=== PATIENT | female | born 1950 | race Caucasian/White ===

== ENCOUNTER → 2017-05-31 | Outpatient (CLI) | payer MEDICARE, BC ==
[~2017-05-31] MED LIST: ACE325 PO; ACET500T68 PO; ALB6.7R INH; CALC600T63 PO; CHOL10005 PO; CIPR3.5O4 OP; DOC100 PO; EYE DROPS; GABA-488 PO; GADOBENATE 529MG/1ML 15ML VIAL IVP ONE; IBUP-1455 PO; LACT1CAP12; LANS15CA28 PO; LEVO50 PO; LIOT5TAB18 PO; LOR10/325 PO; MAGN500C10 PO; MINO50CA PO; MINOCY50PT PO; MULT-1335 PO; OMEG-78 PO; OMEG10007; OMEP-218 PO; OMEP40CA48 PO; OXYC-865 PO; PANT40TA65 PO; PROG50VI5 IM; PROVENTAL INHALER; SYNTHROID; [UNRECOGNIZED DRUG - CODE] PO; [UNRECOGNIZED DRUG - CODE] TOP
--- NOTE | 2017-05-31 13:41 | RADIOLOGY IMAGING REPORT ---
FACILITY: [facility] - [place] PATIENT NAME: Hannah Llamas : 1950 MR: [id number] V: [id number] EXAM DATE: ORDERING PHYSICIAN: PARMINDER GRIDER TECHNOLOGIST: Location: [facility] - [place] Patient: Hannah Llamas : 1950 Visit/Account:[id number] Date of Sevice: 05/31/2017 Examination: MR brain without and with contrast History: Gait disturbance, leg pains Comparison: 05/26/2013 Technique: Multiplane MR imaging was performed through the brain without and with contrast. 14 cc IV multihance was administered. Findings: Diffusion: None Ventricles: Normal Midline shift: None Extraxial fluid: None Midline craniocervical structures: Normal Parenchyma: Greater than 10 scattered white matter high signal foci, a few of which are new. Enhancement: No pathologic enhancement Vascular flow voids: Normal Orbits and paranasal sinuses: Left maxillary sinus mucous retention cyst. Impression: 1. No acute finding. 2. Mild chronic small vessel ischemic change has minimally increased. Otherwise normal brain MR witho ut and with contrast. Report Dictated By: Aamir Tyson MD at 05/31/2017 1:26 PM Report E-Signed By: Aamir Tyson MD at 05/31/2017 1:36 PM WSN:[id number]
== END ==
LOC: MRI 05-25 02:56
PROVIDERS: ATTEND Family Medicine
DX: R26.9 Unspecified abnormalities of gait and mobility (principal); M79.605 Pain in left leg; M79.604 Pain in right leg
CPT/HCPCS: 70553; A9577

== ENCOUNTER 2017-07-20 09:55 | Outpatient (RCR) | payer MEDICARE, BC ==
[2017-04-25 09:29] LABS: PLATELET COUNT, AUTOMATED 197 K/uL (150-450)
[2017-04-25 10:41] VITALS: BP 118/89
[~2017-07-20 09:55] MED LIST changes: -GADOBENATE 529MG/1ML 15ML VIAL IVP ONE; +PROG50VI5 EXT; -PROG50VI5 IM
[2017-07-20 10:01] VITALS: BP 123/61
[2017-07-20 10:22] LABS: PLATELET COUNT, AUTOMATED 225 K/uL (150-450)
== END 2017-07-23 ==
LOC: SPU 09:55
PROVIDERS: ATTEND Internal Medicine Medical Oncology
DX: E83.110 Hereditary hemochromatosis (principal)
CPT/HCPCS: 36415; 82040; 82247; 82310; 82374; 82435; 82565; 82728; 82947; 83540; 83550; 84075; 84132; 84155; 84295; 84450; 84460; 84520; 85025

== ENCOUNTER 2017-07-25 09:49 | Outpatient (RCR) | payer MEDICARE, BC ==
[2017-07-25 10:00] VITALS: BP 127/67
--- NOTE | 2017-07-25 17:07 | ONCOLOGY FOLLOW UP NOTE ---
EVENT DATE: July 25, 2017 REASON FOR FOLLOWUP 1. Hereditary hemochromatosis (C282Y homozygosity). 2. History of small, provoked distal deep venous thrombosis, status post ankle fracture; patient is status post anticoagulation and subsequent discontinuation. CHIEF COMPLAINT Musculoskeletal pain. HISTORY OF PRESENT ILLNESS Hannah returns to clinic for a follow-up visit today. Since our last visit, she reports that mentally she has been doing a little better. She is grieving the loss of her , but she has found great comfort in the hospice sponsored support group, and she continues regularly with a counselor. She said she has good days and bad days, but in general things seem to be getting a bit better. She reports some ongoing issues with pain in her lower extremities , in particular the right ankle, as well as IT bands. She has also had some buttock pain, and she reports that her sacrum had become "displaced," requiring work. She continues to take ibuprofen as needed, and Tylenol sparingly at night. She does not drink alcohol. She is doing a very diligent job avoiding iron-rich foods. She has had no leg swelling, redness, or increased warmth. She reports no shortness of breath, chest pain, or productive cough. She has had labs performed, and she is here to review the results. She has not required [place] phlebotomy in the interim since our last visit. REVIEW OF SYSTEMS Otherwise negative, with the exception of ongoing depression after the loss of her . All systems reviewed. PAST MEDICAL HISTORY 1. History of ankle fracture. 2. History of small, provoked, distal DVT associated with number one; status post anticoagulation and subsequent discontinuation. 3. Hereditary hemochromatosis, as above. CURRENT MEDICATIONS 1. Percocet p.r.n. 2. Topical progesterone. 3. Gabapentin. 4. Tylenol. 5. Cytomel. 6. Albuterol p.r.n. 7. Synthroid. ALLERGIES No known drug allergies, but she is reportedly allergic to LANOLIN OPHTHALMOLOGIC DROPS. SOCIAL HISTORY The patient is a nonsmoker and nondrinker. There is no history of illicit drug use. FAMILY HISTORY There is a reported history of bladder cancer in her father at age 56. VITAL SIGNS Temperature 97.3, blood pressure 127/67, heart rate is 79, respirations 16, oxygen saturation is 95% on room air. Weight is 66 kg. PHYSICAL EXAMINATION GENERAL: The patient is alert and oriented times three in no apparent distress sitting in the exam room chair. She is interactive and pleasant. HEENT: Exam reveals anicteric sclerae. SKIN: Exam reveals small erythematous areas over the bridge of her nose, status post recent dermatologic procedure. NEUROLOGIC: Exam is grossly nonfocal and her gait is normal. EXTREMITIES: Exam reveals no edema, clubbing or cyanosis. LABORATORY STUDIES Reviewed per the [facility] record. ASSESSMENT AND PLAN 1. Hereditary hemochromatosis. Hannah seems to be doing a bit better since our last visit. Physically, she continues to deal with musculoskeletal pain. She is using Tylenol sparingly. We spent time reviewing the results of her follow-up labs. She has a normal ferritin, now in the 60s. Her counts are also normal, and she has no liver function test abnormalities. She was very happy to hear this. She has not required therapeutic phlebotomy, and I do not think that at this point there is any indication to go in this direction. I will have her continue with follow-up labs every three to six months, and I will plan to see her back in clinic in one year, or sooner if there are questions or concerns. 2. History of provoked deep venous thrombosis. Patient has no signs or symptoms to suggest recurrent thrombosis today. GORGE
== END 2017-09-21 08:46 | disposition home or self-care (01) ==
LOC: ONC 09:49
PROVIDERS: ATTEND Internal Medicine Medical Oncology
DX: E83.110 Hereditary hemochromatosis (principal)
CPT/HCPCS: 99212

== ENCOUNTER → 2017-10-11 | Outpatient (CLI) | payer MEDICARE, BC ==
[2017-10-11 11:52] LABS: PLATELET COUNT, AUTOMATED 225 K/uL (150-450)
[2017-10-11 11:55] VITALS: BP 136/66
== END ==
LOC: SPU 07:40
PROVIDERS: ATTEND Internal Medicine Medical Oncology
DX: E83.110 Hereditary hemochromatosis (principal)
CPT/HCPCS: 36415; 82040; 82247; 82310; 82374; 82435; 82565; 82728; 82947; 83540; 83550; 84075; 84132; 84155; 84295; 84450; 84460; 84520; 85025

== ENCOUNTER → 2017-12-27 | Outpatient (CLI) | payer MEDICARE, BC ==
--- NOTE | 2017-12-27 15:00 | RADIOLOGY IMAGING REPORT ---
[place] [facility] [place] NAME: ELIZABET ZAMBRANO : [id number] MR: [id number] V: [id number] EXAM DATE: [id number] ORDERING PHYSICIAN: PARMINDER GRIDER TECHNOLOGIST: Amarilys Beltran PROCEDURE:BILATERAL DIGITAL SCREENING MAMMOGRAM WITH CAD ASSISTED INTERPRETATION & 3D TOMOSYNTHESIS COMPARISON:Prior mammograms 12/04/16, 11/23/15, 11/09/14, 11/06/13, 07/15/12, 02/24/11. INDICATIONS:SCREENING FINDINGS: Small to moderate amount of fibroglandular tissue is seen throughout the breasts. The parenchymal pattern has remained stable allowing for difference in mammographic technique & patient positioning. There is no evidence of malignant appearing mass, malignant appearing calcifications or other secondary sign of malignancy in either breast. DIAGNOSTIC CATEGORY 1--NEGATIVE. RECOMMENDATIONS: ROUTINE MAMMOGRAM AND CLINICAL EVALUATION. IMPRESSION: BIRADS 1: Negative. No significant abnormality is seen. Dictated by: Maureen Luther M.D. on 12/27/2017 at 14:37 Transcribed by: MILVIA on 12/27/2017 at 14:48 Approved by: Maureen Luther M.D. on 12/27/2017 at 14:59 [facility]
== END ==
LOC: MAMO 02:29
PROVIDERS: ATTEND Family Medicine
DX: Z12.31 Encounter for screening mammogram for malignant neoplasm of breast (principal)
CPT/HCPCS: 77063; 77067

== ENCOUNTER 2018-01-21 14:57 | Outpatient (RCR) | payer MEDICARE, BC ==
[2018-01-21 15:21] VITALS: BP 146/74
[2018-01-21 15:24] LABS: PLATELET COUNT, AUTOMATED 203 K/uL (150-450)
== END 2018-02-20 09:35 | disposition home or self-care (01) ==
LOC: SPU 14:57
PROVIDERS: ATTEND Family Medicine
DX: E83.119 Hemochromatosis, unspecified (principal)
CPT/HCPCS: 36415; 82040; 82247; 82310; 82374; 82435; 82565; 82728; 82947; 83540; 84075; 84132; 84155; 84295; 84450; 84460; 84520; 85025

== ENCOUNTER 2018-04-26 09:42 | Outpatient (RCR) | payer MEDICARE, BC ==
[2018-04-26 09:47] VITALS: BP 130/64
[2018-04-26 10:29] LABS: PLATELET COUNT, AUTOMATED 211 K/uL (150-450)
== END 2018-05-24 16:14 | disposition home or self-care (01) ==
LOC: SPU 09:42
PROVIDERS: ATTEND Internal Medicine Medical Oncology
DX: E83.119 Hemochromatosis, unspecified (principal)
CPT/HCPCS: 36415; 82040; 82247; 82310; 82374; 82435; 82565; 82728; 82947; 83540; 83550; 84075; 84132; 84155; 84295; 84450; 84460; 84520; 85025

== ENCOUNTER 2018-10-10 14:00 | Outpatient (RCR) | payer MEDICARE, BC ==
[2018-07-17 13:00] VITALS: BP 135/67
[2018-07-17 13:28] LABS: PLATELET COUNT, AUTOMATED 234 K/uL (150-450)
[2018-07-24 13:06] VITALS: BP 119/67
--- NOTE | 2018-07-24 21:21 | ONCOLOGY FOLLOW UP NOTE ---
EVENT DATE: July 24, 2018 REASON FOR FOLLOWUP 1. Hereditary hemochromatosis (C282Y homozygosity). 2. History of small, provoked distal deep venous thrombosis, status post ankle fracture; patient is status post anticoagulation and subsequent discontinuation. CHIEF COMPLAINT Musculoskeletal pain. INTERIM HISTORY Hannah returns to clinic for a followup visit today. Since our visit one year ago, she reports that she had been doing about the same up until February 2018 when she started to have more problems with her eyes. She reports a recurrent issue with blepharitis and staph infection, and she has also had reported issues with trigeminal neuralgia. This has been problematic. She reports otherwise no new symptoms. Her appetite has been pretty good, and her weight has been stable. She has had no problems with recurrent infection. She denies leg swelling, redness, and pain. She has had no shortness of breath, chest pain, or cough. She is here to review her recent blood work. REVIEW OF SYSTEMS Otherwise negative, and all systems reviewed. PAST MEDICAL HISTORY 1. History of ankle fracture. 2. History of small, provoked, distal DVT associated with number one; status post anticoagulation and subsequent discontinuation. 3. Hereditary hemochromatosis, as above. ALLERGIES No known drug allergies, but she is reportedly allergic to LANOLIN OPHTHALMOLOGIC DROPS. SOCIAL HISTORY The patient is a nonsmoker and nondrinker. There is no history of illicit drug use. FAMILY HISTORY There is a reported history of bladder cancer in her father at age 56. CURRENT MEDICATIONS 1. Vitamin D3. 2. Calcium. 3. Lactobacillus. 4. [place]-3 fish oil. 5. Multivitamin. 6. Progesterone. 7. Gabapentin. 8. Tylenol p.r.n. VITAL SIGNS Temperature is 97.3, blood pressure 119/67, heart rate is 86, respirations 16, oxygen saturation is 96% on room air. Weight is 64.4 kg. PHYSICAL EXAMINATION GENERAL: The patient is alert and oriented times three in no apparent distress sitting in the exam room chair. She is interactive and pleasant. HEENT: Slightly injected sclerae bilaterally. Sclerae otherwise anicteric. NEUROLOGIC: Grossly nonfocal, and her gait is normal. SKIN: Cursory skin exam reveals no concerning rash or lesion. EXTREMITIES: No edema, clubbing, or cyanosis. There is no erythema or tenderness to palpation of the extremities. LABORATORY STUDIES Reviewed per the [facility] record. ASSESSMENT AND PLAN 1. C282Y homozygosity/hereditary hemochromatosis. I had a good visit with Hannah today. Symptomatically, she continues to do well from a hematology standpoint. We spent time reviewing her labs. Her most recent ferritin was 90, and her CBC was normal. She has normal LFTs. As discussed, I think we can hold off on consideration for therapeutic phlebotomy for the time being. I have asked her to return to see me in one year after repeat labs. Of course, I would be more than happy to see her sooner if there are questions or concerns. 2. History of provoked deep venous thrombosis. She has no signs or symptoms to suggest recurrent thrombosis. MTDD
[~2018-10-10 14:00] MED LIST changes: +CALC1WAF PO; +IBUP-136 PO; +MULT1CAP59 PO
[2018-10-10 14:26] LABS: PLATELET COUNT, AUTOMATED 253 K/uL (150-450)
== END 2018-10-14 ==
LOC: SPU 14:00
PROVIDERS: ATTEND Internal Medicine Medical Oncology
DX: E83.119 Hemochromatosis, unspecified (principal)
CPT/HCPCS: 36415; 82728; 83540; 83550; 85025; G0463; 82040; 82247; 82310; 82374; 82435; 82565; 82947; 84075; 84132; 84155; 84295; 84450; 84460; 84520; 99212